=== PATIENT | male | born 1965 | race Caucasian/White ===

== ENCOUNTER 2020-10-04 07:02 | Emergency (ER) | payer BC, OTHER, SELFPAY ==
[2020-10-04 07:04] VITALS: BP 155/99; PULSE 73; RESP 16; TEMP 36; O2SAT 97; BMI 38.2
--- NOTE | 2020-10-04 07:16 | CT_ITS ---
EXAM DESCRIPTION: Unenhanced CT scan of the abdomen and pelvis CLINICAL HISTORY: 54 years Male, Pain COMPARISON: None TECHNIQUE: A CT scan of the abdomen and pelvis was performed without IV contrast contrast administration. Oral contrast was not administered. Coronal and sagittal reconstruction images were reviewed. This exam was performed according to our departmental dose-optimization program, which includes automated exposure control, adjustment of the mA and/or kV according to patient size and/or use of iterative reconstruction technique. FINDINGS: The lung bases and the base of the heart are normal. Diffuse fatty infiltration of the liver is identified.The spleen is normal.The adrenal glands are normal.The head, body, and tail of the pancreas are normal. The left kidney is normal. 2 nonobstructive calyceal calculi are seen in the calyces of the right kidney measuring up to 1 mm in size. There is a 3 mm calculus obstructing the proximal third of the right ureter just distal to the right ureteropelvic junction. The abdominal aortal is normal along its course and distribution. No paraortic lymphadenopathy is seen. No abdominal masses or lesions are seen. The CT scan of the pelvis was then reviewed. The common iliac vessels, external iliac vessels, and common femoral vessels are normal along their course and distribution No pelvis masses or lesions are seen. The appendix is normal. No pericecal inflammatory reaction is seen. Bone scanning windows of the lumbar spine and pelvis were reviewed in the coronal and sagittal planes and appear to be normal. CT/Abdomen/Pelvis without Cont IMPRESSION: 1. Diffuse fatty infiltration of the liver. 2. 2 nonobstructing calyceal calculi measuring 1 mm in size, are seen in the right kidney. 3. Obstructive uropathy caused by a 3 mm calculus in the proximal third of the right ureter. Electronically Signed: Yoel Ruiz DO at 7:56 EDT Tel , Service support ,
--- NOTE | 2020-10-04 07:17 | ED.VIS.GI ---
HPI HPI - GI History of Present Illness Chief Complaint: Flank Pain Informant: patient Narrative Narrative: Patient presents with sudden onset of right flank pain. It does not radiate much the left front. He states he had a little soreness upfront before but none now. It is really located in the back. It is very significant at initial onset. He was not syncopal or presyncopal. He had minimal nausea but that is better. No radiation down legs or to the testicles. No urinary symptoms. No history of kidney stones. Nothing makes his symptoms better or worse. He felt fine right up until this started. He had not been having any symptoms prior to this. Past medical history includes prediabetes, High cholesterol No known allergies Medicines include lamotrigine, atorvastatin, montelukast, Metformin No abdominal surgery PFSH PFSH Medical History Diabetes Hyperlipidemia Home Medications atorvastatin 10 mg PO DAILY 10/04/20 [History Last Taken Unknown] lamotrigine 200 mg PO DAILY 10/04/20 [History Last Taken Unknown] metformin 500 mg PO BID 10/04/20 [History Last Taken Unknown] montelukast 10 mg PO DAILY 10/04/20 [History Last Taken Unknown] naproxen [Naprosyn] 500 mg PO BID PRN #20 tab 10/04/20 [Rx Last Taken Unknown] ondansetron HCl [Zofran] 4 mg PO Q8H PRN #10 tab 10/04/20 [Rx Last Taken Unknown] oxycodone-acetaminophen [Percocet] 1 tab PO Q6H PRN 3 Days #10 tab 10/04/20 [Rx Last Taken Unknown] tamsulosin [Flomax] 0.4 mg PO DAILY #7 cap 10/04/20 [Rx Last Taken Unknown] Allergy/AdvReac Type Severity Reaction Status Date / Time No Known Allergies Allergy Verified 10/04/20 07:03 Social History Smoking Status: Current every day smoker tobacco type: pipe ROS ROS ED Constitutional Constitutional ED: Denies chills or fever(s) ENT ENT ED: Denies rhinorrhea or sore throat Cardiovascular Cardiovascular: Denies chest pain Respiratory/Chest Respiratory/Chest: Denies cough or dyspnea Gastrointestinal Gastrointestinal: Reports nausea; Denies abdominal pain, constipation, diarrhea, melena or vomiting Genitourinary Genitourinary ED: Denies dysuria or hematuria Musculoskeletal Musculoskeletal: Reports back pain Integumentary Denies rash Neurologic Neurologic: Denies paresthesias or weakness Endocrine Endocrinology: Denies polydipsia or polyuria Hematologic/Lymphatic Hematologic/Lymphatic: Denies easy bleeding or easy bruising Allergic/Immunologic Allergic/Immunologic ED: Denies urticaria EXAM Physical Exam Const Vital Signs: 10/04/20 07:04 Temperature 96.8 F L Temperature Source Temporal Pulse Rate 73 Respiratory Rate 16 Blood Pressure 155/99 H Blood Pressure Mean 117 Pulse Ox 97 Oxygen Delivery Method Room Air Positive well nourished and well developed General Appearance ED: well developed and NAD HEENT normocephalic and atraumatic Eyes EOMs intact bilaterally Resp normal respiratory effort and clear to auscultation bilaterally Cardio regular rate and regular rhythm GI non-tender, non-distended and no masses Auscultation: normoactive bowel sounds Palpation: soft; Negative for tender Back/Spine no CVA tenderness Extremity full ROM General Extremety ED: Negative for edema or tenderness General Extremity: Negative for edema Neuro Sensorium / Orientation: alert and oriented to person Psych mental status grossly normal Skin Rashes: no rashes MDM MDM MDM Narrative Medical decision making narrative: CBC is normal. Electrolytes show no marked abnormalities. Mild elevated BUN to creatinine ratio but patient is given IV fluids. Glucose is only mildly elevated at 136. Urinalysis is pending at this time. CT scan was looked at by me and read by radiology and does show a 3 mm calculus in the proximal right ureter with some mild hydro-. There are 2 smaller stones within the substance of the kidney. Patient is doing better with IV fluids and pain meds. Nausea is also improved. Patient was checked again. He still feeling well. His urine shows no sign of infection. I discussed reasons to return that would include worsening pain, fevers, recurrent vomiting or other concerns. He is welcome to follow-up with urology at the [place] and I will also give him number of our urologist. All questions were answered. Lab Data Attestation: I reviewed the patient's lab results. Labs: Laboratory Results - last 24 hr 10/04/20 10/04/20 10/04/20 07:15 07:15 08:20 WBC 8.0 RBC 5.28 Hgb 15.6 Hct 46.4 MCV 87.9 MCH 29.5 MCHC 33.6 RDW Std Deviation 39.5 RDW Coeff of Jayson 12.1 Plt Count 234 MPV 9.7 Immature Gran % (Auto) 0.600 Neut % (Auto) 56.5 Lymph % (Auto) 24.8 [place] % (Auto) 8.7 Eos % (Auto) 8.5 H Baso % (Auto) 0.9 Absolute Neuts (auto) 4.5 Absolute Lymphs (auto) 1.98 Nucleated RBC % 0 Sodium 140 Potassium 3.9 Chloride 104 Carbon Dioxide 24.0 Anion Gap 12 BUN 23 H Creatinine 0.97 Estim Creat Clear Calc 91.98 Est GFR (MDRD) Af Amer 104 Est GFR (MDRD) Non-Af 86 BUN/Creatinine Ratio 23.7 H Glucose 136 H Calcium 9.5 Urine Color Yellow Urine Clarity Clear Urine pH 7.0 Ur Specific [place] 1.015 Urine Protein Negative Urine Glucose (UA) Normal Urine Ketones Negative Urine Occult Blood 250 H Urine Nitrite Negative Urine Bilirubin Negative Urine Urobilinogen Normal Ur Leukocyte Esterase Negative Urine RBC 25-50 SEEN Urine WBC 0 SEEN Ur Squamous Epith Cells 0 SEEN Urine Bacteria 0 SEEN Urine Mucus 0 SEEN Radiography Diagnostic Testing: Radiology Impression Abdomen/Pelvis CT 10/04/20 07:16 IMPRESSION: 1. Diffuse fatty infiltration of the liver. 2. 2 nonobstructing calyceal calculi measuring 1 mm in size, are seen in the right kidney. 3. Obstructive uropathy caused by a 3 mm calculus in the proximal third of the right ureter. Electronically Signed: Yoel Ruiz DO at 7:56 EDT Tel , Service support , Discharge Plan Triage Chief Complaint: Flank Pain ED Provider: Ry Ceballos Dx/Rx/DC Orders Clinical Impression: Kidney stone on right side Instructions: ED Kidney Stone w/ Colic Prescriptions: New naproxen [Naprosyn] 500 mg tablet 500 mg PO BID PRN (Reason: pain) Qty: 20 RF: 0 tamsulosin [Flomax] 0.4 mg capsule 0.4 mg PO DAILY Qty: 7 RF: 0 oxycodone-acetaminophen [Percocet] 5-325 mg tablet 1 tab PO Q6H PRN (Reason: pain) 3 Days Qty: 10 RF: 0 ondansetron HCl [Zofran] 4 mg tablet 4 mg PO Q8H PRN (Reason: nausea and vomiting) Qty: 10 RF: 0 No Action metformin 500 mg Tablet 500 mg PO BID RF: 0 lamotrigine 200 mg Tablet 200 mg PO DAILY RF: 0 atorvastatin 10 mg Tablet 10 mg PO DAILY RF: 0 montelukast 10 mg Tablet 10 mg PO DAILY RF: 0 [facility] Referrals: Sam Oquendo MD [STAFF PHYSICIAN] - 3-5 Days [facility] [Primary Care Provider] - 3-5 Days Disposition Disposition: Home, Self Care
[2020-10-04 07:23] LABS: Absolute Lymphocyte Count 1.98 X10^3/uL (0.83-4.51); Absolute Neutrophil Count 4.5 X10^3/uL (2.0-7.7); Basophil# 0.07 X10^3/uL; Basophil% 0.9 % (0-1); Eosinophil# 0.68 X10^3/uL; Eosinophils% 8.5 % (0-5); Hematocrit 46.4 % (40-54); Hemoglobin 15.6 g/dL (13.0-16.5); Lymphocyte # 1.98 X10^3/ul (0.83-4.51); Lymphocyte % 24.8 % (19-41); Mean Corp Hgb Conc 33.6 g/dL (32-36); Mean Corpuscular Hgb 29.5 pg (27.0-32.0); Mean Corpuscular Volume 87.9 fL (80-94); Mean Platelet Vol. 9.7 fl (6.2-12.0); Monocyte# 0.69 X10^3/uL; Monocyte% 8.7 % (0-10); NRBC Flagged by Analyzer 0 % (0-5); Neutrophil % 56.5 % (47-70); Platelet Count 234 K/mm3 (150-450); RBC Distribution Width CV 12.1 % (11.6-14.6); RBC Distribution Width SD 39.5 fl (35.1-43.9); Red Blood Count 5.28 M/mm3 (4.6-6.2)
[2020-10-04] MEDS: 0.9% Normal Saline 1,000 ML 1000 ML IV (07:24)
[2020-10-04] MEDS: Ketorolac 15 MG/ML Vial IV (07:25)
[2020-10-04] MEDS: Ondansetron 4 MG/2 ML Vial IV (07:25)
[2020-10-04] MEDS: Morphine 4 MG/ML Syringe IV (07:25)
[2020-10-04 07:32] LABS: Anion Gap 12 (5-15); BUN 23 mg/dL (7-18); BUN/Creat Ratio 23.7 RATIO (10-20); Calcium,Total 9.5 mg/dL (8.5-10.1); Chloride 104 mmol/L (98-107); Creatinine, Serum 0.97 mg/dL (0.70-1.30); EST Glomerular Filtration Rate 86 mL/min (>60); Est Glom Filt Rate - Afr Amer 104 mL/min (>60); Estimated Creatinine Clearance 91.98 ml/min; Glucose 136 mg/dL (74-106); Potassium 3.9 mmol/L (3.5-5.1); Sodium Level 140 mmol/L (136-145)
[2020-10-04 08:26] LABS: Bacteria 0 SEEN /hpf (None Seen); Mucous, Urine 0 SEEN /hpf (<or=2+); Squamous Epithelial Cells - UA 0 SEEN /hpf (0-5); White Blood Cells 0 SEEN /hpf (0-5)
[2020-10-04 08:27] LABS: Color, Urine Yellow (Yellow); Glucose, Dipstick Normal (Normal); Ketone-Dipstick Negative (Negative); Leukocyte Esterase-Dipstick Negative /ul (Negative); Nitrite-Dipstick Negative (Negative); Occult Blood-Urine 250 /ul (Negative); Protein-Dipstick Negative (Negative); Specific Gravity, Urine 1.015 (1.002-1.030); Urine Bilirubin Dipstick Negative (Negative); Urine Clarity Clear (Clear); Urine Urobilinogen Normal (Normal)
[2020-10-04 08:37] LABS: Red Blood Cells-Urine 25-50 SEEN /hpf (0-5)
[2020-10-04 09:25] VITALS: BP 146/87; PULSE 70; RESP 15; O2SAT 97
== END 2020-10-04 09:28 | disposition home or self-care (01) ==
PROVIDERS: Emergency Provider Emergency Medicine
DX: N20.2 Calculus of kidney with calculus of ureter (principal); K76.0 Fatty (change of) liver, not elsewhere classified; E78.00 Pure hypercholesterolemia, unspecified; E11.9 Type 2 diabetes mellitus without complications; F17.200 Nicotine dependence, unspecified, uncomplicated; E78.5 Hyperlipidemia, unspecified; Z79.1 Long term (current) use of non-steroidal anti-inflammatories (NSAID); Z79.84 Long term (current) use of oral hypoglycemic drugs; Z79.899 Other long term (current) drug therapy
CPT/HCPCS: 74176; 80048; 81001; 85025; 96361; 96374; 96375; 99284; J7030; A4216; J2405

== ENCOUNTER → 2022-11-14 | Outpatient (CLI) | payer OTHER, SELFPAY ==
--- NOTE | 2022-11-14 06:39 | US_ITS ---
STUDY: ABDOMINAL ULTRASOUND - RIGHT UPPER QUADRANT REASON FOR VISIT: Male, 56 years old ELEVATED LFT TECHNIQUE: Ultrasound evaluation of the right upper quadrant was performed with real-time and static mendenhall-scale imaging. TECHNICAL QUALITY: Limited. Examination limited by bowel gas. COMPARISON: None. FINDINGS: Liver: The liver is enlarged and measures 20.2 cm. There is increased echogenicity consistent with fatty infiltration. The bile ducts are within normal limits. There is hepatic color flow. The direction of portal flow is hepatopetal. There is no demonstrated mass lesion. Gallbladder: Normal distended gallbladder. The gallbladder wall measures 1.3 mm. There is a negative sonographic Horne''s sign. There is no pericholecystic fluid. There are no gallstones. Common Bile Duct (C.B.D.): The common bile duct measures 4.9 mm. Pancreas: There is nonvisualization of the pancreas due to overlying bowel gas. Right Kidney: Normal size of the right kidney. The right kidney measures 13 cm x 6.9 cm x 5.9 cm. Normal renal cortex. The right cortex measures 1.4 cm. There is no demonstrated renal mass or cyst. There is no right hydronephrosis. US/Liver IMPRESSION: Hepatomegaly and fatty infiltration of the liver. Electronically Signed: Rosalio Garcia MD at 10:23 EDT ,
== END | disposition home or self-care (01) ==
LOC: US 06:38
DX: R79.89 Other specified abnormal findings of blood chemistry (principal)
CPT/HCPCS: 76705

== ENCOUNTER 2023-01-14 02:04 | Emergency (ER) | payer OTHER, SELFPAY ==
[2023-01-14 02:05] VITALS: BP 131/115; PULSE 85; RESP 15; TEMP 36.4; O2SAT 97; BMI 30.7
--- NOTE | 2023-01-14 02:24 | EDS_ITS ---
HPI HPI - Female History of Present Illness Chief Complaint: Flank Pain PFSH PFSH Medical History (Updated 01/14/23 @ 04:[address] Tim Marshall, DO) Arthritis Chronic neck and back pain Diabetes Hay fever Hyperlipidemia Injury of conjunctiva and corneal abrasion of left eye w/o FB Kidney stone on right side Knee pain Home Medications atorvastatin 10 mg tablet 10 mg PO DAILY 10/04/20 [History Last Taken Unknown] lamotrigine 200 mg tablet 200 mg PO DAILY 10/04/20 [History Last Taken Unknown] metformin 500 mg tablet 500 mg PO BID 10/04/20 [History Last Taken Unknown] montelukast 10 mg tablet 10 mg PO DAILY 10/04/20 [History Last Taken Unknown] celecoxib 50 mg capsule 50 mg PO BID 01/31/21 [History Last Taken Unknown] cetirizine 10 mg tablet 10 mg PO 01/31/21 [History Last Taken Unknown] cholecalciferol (vitamin D3) 10 mcg (400 unit) capsule 10 mcg PO DAILY 01/31/21 [History Last Taken Unknown] ondansetron 4 mg disintegrating tablet 4 mg PO Q8H PRN PRN Nausea #10 tabs 01/14/23 [Rx Last Taken Unknown] oxycodone 5 mg capsule 5 mg PO Q6H PRN pain 3 days #12 caps 01/14/23 [Rx Last Taken Unknown] tamsulosin 0.4 mg capsule (Flomax) 0.4 mg PO DAILY #5 caps 01/14/23 [Rx Last Taken Unknown] Allergy/AdvReac Type Severity Reaction Status Date / Time mold Allergy cough, Verified 01/14/23 02:10 watery eyes Social History (Updated 01/31/21 @ 11:15 by Ibeth Felton) Smoking Status: Former smoker alcohol intake: never EXAM Physical Exam Const Vital Signs: 01/14/23 02:05 01/14/23 03:57 Temperature 97.5 F L Temperature Source Temporal Pulse Rate 85 76 Respiratory Rate 15 15 Blood Pressure 131/115 H 159/93 H Blood Pressure Mean 120 115 Pulse Ox 97 96 Oxygen Delivery Method Room Air Room Air MDM MDM MDM Narrative Medical decision making narrative: HISTORY OF PRESENT ILLNESS: 57-year-old male here with concern for right flank pain. Prior to arrival feels like similar to prior kidney stone. No family history chronic tissue disorders or any aortic aneurysms REVIEW OF SYSTEMS: Pertinent positives: Right flank pain Pertinent negatives: Fever, nausea vomiting PHYSICAL EXAM: Nursing triage notes reviewed, Vital signs reviewed Constitutional: please see mdm HENT: MMM Eyes: Pupils equal round and reactive to light, Extraocular muscles intact Neck: No stridor, no JVD, full neck ROM Lungs: Clear to auscultation, No wheezing or rales. No increased work of breathing, no conversational dyspnea, no accessory muscle use, no nasal flaring. No respiratory distress noted Heart: Regular rate and rhythm, No murmurs, No rubs and No gallops, 2+ distal pulses (radial, femoral, posterior tibial) in all extremities Abdomen: Soft, there is no tenderness, rigidity, rebound or guarding, no obvious peritoneal signs, no palpable pulsatile abdominal masses, no auscultated abdominal bruit : No CVAT Extremities: No edema Neuro: No focal neurological deficits, cranial nerves II through XII intact, 5/5 strength in all extremities. Intact sensation to light touch in all extremities, 2+ reflexes bilateral patella tendons. Normal gait. No ataxia. Skin: No rash or lesions noted MEDICAL DECISION MAKING: Chief Complaint: Flank pain External records reviewed: Imaging reviewed: CT scan from 2020 shows evidence of a right nephrolithiasis Factors affecting care: kidney stones, hyperlipidemia, type 2 diabetes Social determinants of health: none History obtained from others: The patient's Consults: none [facility] Narrative: Patient was hemodynamically stable, afebrile, nontoxic-appearing. Right CVA tenderness noted I considered the following differential diagnosis: Nephrolithiasis, pyelonephritis, AAA ALL IMAGES (IF OBTAINED) HAVE BEEN PERSONALLY REVIEWED AND INTERPRETED BY MYSELF. CBC leukocytosis suggestive of systemic inflammation likely reactive secondary to kidney stone BMP without evidence of significant electrolyte abnormalities, no anion gap, no acute kidney injury. Urinalysis shows no evidence of urinary inflammation suggestive of UTI CT scan shows proximal right ureteral 3.5 mm stone with mild hydronephrosis The synthesis of the patient's labs, images, history and physical exam are consistent with nephrolithiasis. Noted improvement with Toradol. Gave Percocet, Zofran and Flomax for home-going. Gave strict return precautions. The patient and/or family, caregivers express understanding. The patient and/or family, caregivers agrees with the plan. Shared decision making: I will have a discussion with the patient and or visitors regarding risk/benefits of further testing or admission. They will be made aware of of the risk/benefits inherent in this decision they will be given the opportunity to voice understanding. Total critical care time today provided was at least 0 minutes. This excludes separately billable procedures. Critical care time (if documented) is secondary to the patient having high probability of clinically significant/life threatening deterioration in the patient's condition which required my urgent intervention. Impression: 1. Nephrolithiasis 2. Hydronephrosis 3. Leukocytosis Dispo: Discharge Lab Data Labs: Laboratory Results - last 24 hr 01/14/23 01/14/23 02:20 03:30 WBC 13.0 H RBC 5.12 Hgb 15.3 Hct 44.9 MCV 87.7 MCH 29.9 MCHC 34.1 RDW Std Deviation 41.1 RDW Coeff of [place] 12.8 Plt Count 240 MPV 10.0 Immature Gran % (Auto) 0.600 Neut % (Auto) 76.8 H Lymph % (Auto) 11.8 L [place] % (Auto) 7.5 Eos % (Auto) 2.7 Baso % (Auto) 0.6 Absolute Neuts (auto) 10.0 H Absolute Lymphs (auto) 1.53 Nucleated RBC % 0 Sodium 139 Potassium 4.1 Chloride 108 H Carbon Dioxide 24.0 Anion Gap 7 BUN 29 H Creatinine 1.18 Estim Creat Clear Calc 73.03 Est GFR (MDRD) Af Amer 82 Est GFR (MDRD) Non-Af 68 BUN/Creatinine Ratio 24.6 H Glucose 149 H Calcium 9.5 Urine Color Yellow Urine Clarity Clear Urine pH 5.0 Ur Specific [place] 1.030 Urine Protein 30 H Urine Glucose (UA) Normal Urine Ketones 5 H Urine Occult Blood 25 H Urine Nitrite Negative Urine Bilirubin Negative Urine Urobilinogen 1 H Ur Leukocyte Esterase 25 H Urine RBC 0-5 SEEN Urine WBC 0-5 SEEN Ur Squamous Epith Cells 0 SEEN Urine Bacteria RARE Urine Mucus 2+ Radiography Diagnostic Testing: Clinical Impression(s) from Imaging Studies Abdomen/Pelvis CT 01/14/23 02:25 IMPRESSION: 1. Mild right hydronephrosis and perinephric stranding due to a 3.5 mm stone in the proximal right ureter. 2. Coronary artery disease. 3. Enlarged fatty liver. 4. Small bilateral fat-containing inguinal hernias. Electronically Signed: Jagdeep Campos MD at 3:42 EST , Discharge Plan Triage Chief Complaint: Flank Pain ED Provider: Tim Marshall Dx/Rx/DC Orders Instructions: ED Kidney Stone w/ Colic Prescriptions: New oxycodone 5 mg capsule 5 mg PO Q6H PRN (Reason: pain) 3 Days Qty: 12 0RF ondansetron 4 mg tablet,disintegrating 4 mg PO Q8H PRN PRN (Reason: Nausea) Qty: 10 0RF tamsulosin [Flomax] 0.4 mg capsule 0.4 mg PO DAILY Qty: 5 0RF No Action cetirizine 10 mg tablet 10 mg PO celecoxib 50 mg capsule 50 mg PO BID cholecalciferol (vitamin D3) 10 mcg (400 unit) capsule 10 mcg PO DAILY metformin 500 mg Tablet 500 mg PO BID lamotrigine 200 mg Tablet 200 mg PO DAILY atorvastatin 10 mg Tablet 10 mg PO DAILY montelukast 10 mg Tablet 10 mg PO DAILY Stand Alone Forms: ED Work / School Excuse [facility] Care Provider: [facility] Referrals: [facility] [Primary Care Provider] - Activity Restrictions/Additional Instructions: Thank you for trusting us with your care today! Please take Tylenol (2 pills, 650 mg), ibuprofen (2 pills, 400 mg) every 6 hours as needed for pain and fever control. Please take oxycodone with the above regimen does not control your pain. Please take tamsulosin as directed. Please return to the emergency department if your symptoms change or worsen. If you develop vomiting cannot take your medicine by mouth or if you are in severe pain is not improved by the above regiment. Please follow with your primary care physician for further outpatient evaluation and management. Disposition Disposition: Home, Self Care
--- NOTE | 2023-01-14 02:25 | CT_ITS ---
EXAM: CT ABDOMEN AND PELVIS WITHOUT INTRAVENOUS CONTRAST CLINICAL INDICATION: Kidney Stone TECHNIQUE: Helically acquired images were obtained of the abdomen and pelvis without intravenous contrast. This CT exam was performed using one or more of the following dose reduction techniques: automated exposure control, adjustment of the mA and/or kV according to patient size, and/or use of iterative reconstruction technique. RADIATION DOSE: CTDIvol = 20.27 mGy, DLP = 1114.11 mGy-cm COMPARISON: 10/04/2020. FINDINGS: LOWER THORAX: Coronary artery calcifications. Lung bases are clear. No cardiomegaly. No significant pericardial effusion. ABDOMEN: LIVER: Hepatomegaly. There is diffuse low-attenuation of the liver. GALLBLADDER AND BILE DUCTS: Unremarkable. No calcified gallstones. No gallbladder distention or wall edema. No intra- or extrahepatic biliary ductal dilation. PANCREAS: Unremarkable. No focal cystic mass. SPLEEN: Unremarkable. Normal size without focal cystic or solid mass. ADRENALS: Unremarkable. No nodules. KIDNEYS AND URETERS: Mild right hydronephrosis and perinephric stranding due to a 3.5 mm stone in the proximal right ureter. Normal renal size and position. STOMACH AND BOWEL: Unremarkable. No stomach or bowel distention. No focal inflammatory change. PELVIS: APPENDIX: Normal appendix. BLADDER: Unremarkable. REPRODUCTIVE: Unremarkable as visualized. No mass. ABDOMEN and PELVIS: INTRAPERITONEAL SPACE: Unremarkable. No ascites or other fluid collection. No free air. BONES/JOINTS: Unremarkable. No suspicious lytic or blastic abnormality. SOFT TISSUES: Small bilateral fat-containing inguinal hernias. VASCULATURE: See above. LYMPH NODES: Unremarkable. No enlarged lymph nodes. CT/Abdomen/Pelvis without Cont IMPRESSION: 1. Mild right hydronephrosis and perinephric stranding due to a 3.5 mm stone in the proximal right ureter. 2. Coronary artery disease. 3. Enlarged fatty liver. 4. Small bilateral fat-containing inguinal hernias. Electronically Signed: Jagdeep Campos MD at 3:42 EST ,
[2023-01-14] MEDS: Ketorolac 15 MG/ML Vial IV (03:01)
[2023-01-14] MEDS: 0.9% Normal Saline (1000mL) 1,000 ML 999 ML IV (03:01)
[2023-01-14 03:08] LABS: Absolute Lymphocyte Count 1.53 X10^3/uL (0.83-4.51); Basophil# 0.08 X10^3/uL; Basophil% 0.6 % (0-1); Eosinophil# 0.35 X10^3/uL; Eosinophils% 2.7 % (0-5); Hematocrit 44.9 % (40-54); Hemoglobin 15.3 g/dL (13.0-16.5); Lymphocyte # 1.53 X10^3/ul (0.83-4.51); Lymphocyte % 11.8 % (19-41); Mean Corp Hgb Conc 34.1 g/dL (32-36); Mean Corpuscular Hgb 29.9 pg (27.0-32.0); Mean Corpuscular Volume 87.7 fL (80-94); Monocyte# 0.97 X10^3/uL; Monocyte% 7.5 % (0-10); NRBC Flagged by Analyzer 0 % (0-5); Neutrophil # 9.97 X10^3/uL (2.7-7.7); Neutrophil % 76.8 % (47-70); Platelet Count 240 K/mm3 (150-450); RBC Distribution Width CV 12.8 % (11.6-14.6); RBC Distribution Width SD 41.1 fl (35.1-43.9); Red Blood Count 5.12 M/mm3 (4.6-6.2)
[2023-01-14 03:23] LABS: Anion Gap 7 (5-15); BUN 29 mg/dL (7-18); BUN/Creat Ratio 24.6 RATIO (10-20); Calcium,Total 9.5 mg/dL (8.5-10.1); Chloride 108 mmol/L (98-107); Creatinine, Serum 1.18 mg/dL (0.70-1.30); EST Glomerular Filtration Rate 68 mL/min (>60); Est Glom Filt Rate - Afr Amer 82 mL/min (>60); Estimated Creatinine Clearance 73.03 ml/min; Glucose 149 mg/dL (74-106); Potassium 4.1 mmol/L (3.5-5.1); Sodium Level 139 mmol/L (136-145)
[2023-01-14 03:35] LABS: Squamous Epithelial Cells - UA 0 SEEN /hpf (0-5)
[2023-01-14 03:36] LABS: Color, Urine Yellow (Yellow); Glucose, Dipstick Normal (Normal); Ketone-Dipstick 5 mg/dl (Negative); Leukocyte Esterase-Dipstick 25 /ul (Negative); Nitrite-Dipstick Negative (Negative); Occult Blood-Urine 25 /ul (Negative); Protein-Dipstick 30 mg/dl (Negative); Urine Bilirubin Dipstick Negative (Negative); Urine Clarity Clear (Clear); Urine Urobilinogen 1 mg/dl (Normal)
[2023-01-14 03:46] LABS: Bacteria RARE /hpf (None Seen); Mucous, Urine 2+ /hpf (<or=2+); Red Blood Cells-Urine 0-5 SEEN /hpf (0-5); White Blood Cells 0-5 SEEN /hpf (0-5)
[2023-01-14 03:57] VITALS: BP 159/93; PULSE 76; RESP 15; O2SAT 96
[2023-01-14 04:52] VITALS: BP 159/93; PULSE 76; RESP 15; O2SAT 96
== END 2023-01-14 04:54 | disposition home or self-care (01) ==
PROVIDERS: Emergency Provider Emergency Medicine; Visit Provider Emergency Medicine
DX: N13.6 Pyonephrosis (principal); E11.9 Type 2 diabetes mellitus without complications; E78.5 Hyperlipidemia, unspecified; Z79.84 Long term (current) use of oral hypoglycemic drugs; Z79.899 Other long term (current) drug therapy; Z87.442 Personal history of urinary calculi; Z87.891 Personal history of nicotine dependence
CPT/HCPCS: 74176; 80048; 81001; 85025; 96361; 96374; 99283

== ENCOUNTER 2023-01-18 15:16 | Emergency (ER) | payer OTHER, SELFPAY ==
[2023-01-18 15:16] VITALS: BP 175/107; PULSE 74; RESP 18; TEMP 37.4; O2SAT 97; BMI 38.7
[2023-01-18 15:37] LABS: Bacteria 0 SEEN /hpf (None Seen); Mucous, Urine 0 SEEN /hpf (<or=2+); Red Blood Cells-Urine 0 SEEN /hpf (0-5); Squamous Epithelial Cells - UA 0 SEEN /hpf (0-5); White Blood Cells 0 SEEN /hpf (0-5)
[2023-01-18 15:41] LABS: Color, Urine Straw (Yellow); Glucose, Dipstick Normal (Normal); Ketone-Dipstick Negative (Negative); Leukocyte Esterase-Dipstick Negative /ul (Negative); Nitrite-Dipstick Negative (Negative); Occult Blood-Urine Negative /ul (Negative); Protein-Dipstick Negative (Negative); Urine Bilirubin Dipstick Negative (Negative); Urine Clarity Clear (Clear); Urine Urobilinogen Normal (Normal)
--- NOTE | 2023-01-18 15:45 | EX.ED.GUMALE ---
HPI <NOMI Mcgovern - Last Filed: 01/18/23 17:26> History of Present Illness Chief Complaint: Flank Pain Narrative Narrative: Patient presenting today due to right flank pain. He was diagnosed with a right-sided kidney stone, 3.5 mm on 01/14/2023. He reports that he is still experiencing right flank pain. He denies any dysuria, hematuria, increased urinary frequency. He has occasional nausea with the pain but is not currently nauseous. He reports that he has been constipated since taking the Percocet and has not had a bowel movement in a few days. He is still passing gas, no history of bowel obstruction, no history of abdominal surgery. He denies any fevers, chills, and vomiting. PFS <NOMI Mcgovern - Last Filed: 01/18/23 17:26> [facility] Medical History Arthritis Chronic neck and back pain Diabetes Hay fever Hyperlipidemia Injury of conjunctiva and corneal abrasion of left eye w/o FB Kidney stone on right side Knee pain Home Medications atorvastatin 10 mg tablet 10 mg PO DAILY 10/04/20 [History Last Taken Unknown] lamotrigine 200 mg tablet 200 mg PO DAILY 10/04/20 [History Last Taken Unknown] metformin 500 mg tablet 500 mg PO BID 10/04/20 [History Last Taken Unknown] montelukast 10 mg tablet 10 mg PO DAILY 10/04/20 [History Last Taken Unknown] celecoxib 50 mg capsule 50 mg PO BID 01/31/21 [History Last Taken Unknown] cetirizine 10 mg tablet 10 mg PO 01/31/21 [History Last Taken Unknown] cholecalciferol (vitamin D3) 10 mcg (400 unit) capsule 10 mcg PO DAILY 01/31/21 [History Last Taken Unknown] ondansetron 4 mg disintegrating tablet 4 mg PO Q8H PRN PRN Nausea #10 tabs 01/14/23 [Rx Last Taken Unknown] oxycodone 5 mg capsule 5 mg PO Q6H PRN pain 3 days #12 caps 01/14/23 [Rx Last Taken Unknown] tamsulosin 0.4 mg capsule (Flomax) 0.4 mg PO DAILY #5 caps 01/14/23 [Rx Last Taken Unknown] oxycodone-acetaminophen 5 mg-325 mg tablet (Endocet) 1 tab PO Q6H PRN pain 2 days #8 tabs 01/18/23 [Rx Last Taken Unknown] Allergy/AdvReac Type Severity Reaction Status Date / Time mold Allergy cough, Verified 01/18/23 15:16 watery eyes Social History Smoking Status: Former smoker alcohol intake: never ROS <NOMI Mcgovern - Last Filed: 01/18/23 17:26> ROS ED Constitutional Constitutional ED: Denies chills or fever(s) Cardiovascular Cardiovascular: Denies chest pain Respiratory/Chest Respiratory/Chest: Denies cough or dyspnea Gastrointestinal Gastrointestinal: Reports constipation and nausea; Denies abdominal pain or vomiting Genitourinary Genitourinary ED: Denies dysuria, hematuria or urinary urgency Musculoskeletal Musculoskeletal: Reports other Details: Right flank pain Integumentary Denies rash Neurologic Neurologic: Denies weakness EXAM <NOMI Mcgoevrn - Last Filed: 01/18/23 17:26> Physical Exam Const Vital Signs: 01/18/23 15:16 Temperature 99.4 F H Temperature Source Temporal Pulse Rate 74 Respiratory Rate 18 Blood Pressure 175/107 H Blood Pressure Mean 129 Pulse Ox 97 Oxygen Delivery Method Room Air Positive well nourished, well developed and no apparent distress General Appearance ED: well developed HEENT Reports normocephalic and head/scalp atraumatic Mouth ED: Yes moist mucous membranes normal Eyes PERRL and EOMs intact bilaterally Neck full ROM and supple Chest Wall inspection of chest normal Resp normal respiratory effort and clear to auscultation bilaterally Cardio regular rate and regular rhythm GI soft to palpation, non-tender, non-distended and no masses Back/Spine normal ROM and normal to inspection Extremity normal to inspection and full ROM Neuro oriented x3, CN's II-XII intact bilaterally, moves all extremities, no focal motor deficits and no sensory deficits noted Sensorium / Orientation: awake and alert Psych mental status grossly normal and thought process normal Skin no rashes or lesions noted and no wounds <Dr. Rob Redd MD - Last Filed: 01/18/23 16:15> Physical Exam Const Vital Signs: 01/18/23 15:16 Temperature 99.4 F H Temperature Source Temporal Pulse Rate 74 Respiratory Rate 18 Blood Pressure 175/107 H Blood Pressure Mean 129 Pulse Ox 97 Oxygen Delivery Method Room Air [facility] <NOMI Mcgovern - Last Filed: 01/18/23 17:26> [facility] Narrative Medical decision making narrative: Patient presenting with right flank pain that he has had since being diagnosed with a kidney stone 01/14/2023. Recent CT reviewed and showed a 3.5 mm stone in the proximal right ureter. He reports that his pain has been under control with the Percocet he was prescribed but he has ran out of that. He is experiencing some constipation as well since starting the Percocet, he began taking Dulcolax and suppositories but has only had 2 doses of this. Symptoms do not sound consistent with bowel obstruction, he is passing gas. Patient was treated with Toradol here, this did help but he was still experiencing some discomfort so he was given IV Dilaudid. On reexamination he reports improvement of his pain. He is requesting additional pain medications for home, I did explain to him that the Percocet is going to further worsen his constipation, he is understanding. I encouraged him to begin taking MiraLAX and increase fiber in his diet. His stone should pass without difficulty, he is to follow-up with his PCP and will be discharged home in stable condition. He is comfortable with plan. UA negative for UTI. Has an IV in place. He was treated with IV Toradol. Then IV Dilaudid. Lab Data Labs: Laboratory Results - last 24 hr 01/18/23 15:30 Urine Color Straw Urine Clarity Clear Urine pH 7.0 Ur Specific [place] 1.010 Urine Protein Negative Urine Glucose (UA) Normal Urine Ketones Negative Urine Occult Blood Negative Urine Nitrite Negative Urine Bilirubin Negative Urine Urobilinogen Normal Ur Leukocyte Esterase Negative Urine RBC 0 SEEN Urine WBC 0 SEEN Ur Squamous Epith Cells 0 SEEN Urine Bacteria 0 SEEN Urine Mucus 0 SEEN <Dr. Rob Redd MD - Last Filed: 01/18/23 16:15> [facility] Narrative Medical decision making narrative: Patient presenting with right flank pain that he has had since being diagnosed with a kidney stone 01/14/2023. Recent CT reviewed and showed a 3.5 mm stone in the proximal right ureter. Has an IV in place. He was treated with IV Toradol. Then IV Dilaudid. Lab Data Attestation: I reviewed the patient's lab results. Lab results narrative: Urinalysis is normal. No white or red cells. No bacteria nor nitrates. Labs: Laboratory Results - last 24 hr 01/18/23 15:30 Urine Color Straw Urine Clarity Clear Urine pH 7.0 Ur Specific [place] 1.010 Urine Protein Negative Urine Glucose (UA) Normal Urine Ketones Negative Urine Occult Blood Negative Urine Nitrite Negative Urine Bilirubin Negative Urine Urobilinogen Normal Ur Leukocyte Esterase Negative Urine RBC 0 SEEN Urine WBC 0 SEEN Ur Squamous Epith Cells 0 SEEN Urine Bacteria 0 SEEN Urine Mucus 0 SEEN Discharge Plan Triage Chief Complaint: Flank Pain ED Midlevel Provider: Casandra Hector ED Provider: Rob Redd Dx/Rx/DC Orders Clinical Impression: Right flank pain, Kidney stone on right side, Constipation Instructions: ED Constipation (Adult), ED Kidney Stone w/ Colic Prescriptions: New oxycodone-acetaminophen [Endocet] 5-325 mg tablet 1 tab PO Q6H PRN (Reason: pain) 2 Days Qty: 8 0RF No Action cetirizine 10 mg tablet 10 mg PO celecoxib 50 mg capsule 50 mg PO BID cholecalciferol (vitamin D3) 10 mcg (400 unit) capsule 10 mcg PO DAILY metformin 500 mg Tablet 500 mg PO BID lamotrigine 200 mg Tablet 200 mg PO DAILY atorvastatin 10 mg Tablet 10 mg PO DAILY montelukast 10 mg Tablet 10 mg PO DAILY oxycodone 5 mg capsule 5 mg PO Q6H PRN (Reason: pain) 3 Days Qty: 12 0RF ondansetron 4 mg tablet,disintegrating 4 mg PO Q8H PRN PRN (Reason: Nausea) Qty: 10 0RF tamsulosin [Flomax] 0.4 mg capsule 0.4 mg PO DAILY Qty: 5 0RF [facility] [facility] [facility] [Primary Care Provider] - Activity Restrictions/Additional Instructions: Begin taking MiraLAX for your constipation. Return for any worsening of your symptoms. You can continue to take Tylenol and ibuprofen for your pain as needed. Disposition Disposition: Home, Self Care
[2023-01-18] MEDS: Ketorolac 15 MG/ML Vial IV (15:59)
[2023-01-18] MEDS: HYDROmorphone 1 MG/ML Syringe IV (16:12)
== END 2023-01-18 17:38 | disposition home or self-care (01) ==
PROVIDERS: Emergency Provider Emergency Medicine; Visit Provider Emergency Medicine
DX: R10.9 Unspecified abdominal pain (principal); E11.9 Type 2 diabetes mellitus without complications; K59.00 Constipation, unspecified; N20.2 Calculus of kidney with calculus of ureter; Z87.891 Personal history of nicotine dependence; E78.5 Hyperlipidemia, unspecified; Z79.899 Other long term (current) drug therapy; Z79.84 Long term (current) use of oral hypoglycemic drugs
CPT/HCPCS: 81001; 96374; 96375; 99283; J7030; A4216